=== PATIENT | male | born 1995 | race Caucasian/White ===

== ENCOUNTER 2017-04-03 16:09 | Emergency (ER) | payer BC ==
[2017-04-03 17:23] VITALS: BP 127/66
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
--- NOTE | 2017-04-03 19:46 | RAD ---
INDICATION: Left orbital trauma COMPARISON: None TECHNIQUE: Axial source images were acquired through the orbits orbits. Coronal and sagittal reconstructed images were acquired. FINDINGS: Orbits: The globes and intraconal structures appear intact. The optic nerves are symmetric. Extraocular muscles appear normal. There is no intraconal inflammatory change or retrobulbar mass.. Paranasal sinuses: There is mild mucosal thickening in the inferior portions of both maxillary antra The paranasal sinuses are otherwise clear. There is mild nasal septal deviation to the right Brain: There are no acute abnormalities of the visualized brain parenchyma. Soft tissues: Normal Other: None IMPRESSION: NEGATIVE NONCONTRAST CT OF THE ORBITS
== END 2017-04-03 19:56 | disposition home or self-care (01) ==
LOC: UCCORT 16:09
DX: S00.83XA Contusion of other part of head, initial encounter (principal); W50.0XXA Accidental hit or strike by another person, initial encounter; Y93.9 Activity, unspecified; Y92.9 Unspecified place or not applicable; G43.909 Migraine, unspecified, not intractable, without status migrainosus
CPT/HCPCS: 70480; 99201; G0463

== ENCOUNTER 2018-02-26 17:37 | Emergency (ER) | payer BC, OTHER ==
[2018-02-26 18:17] VITALS: BP 133/78
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
== END 2018-02-26 18:59 | disposition home or self-care (01) ==
LOC: UCCORT 17:37
DX: S00.81XA Abrasion of other part of head, initial encounter (principal); Y04.0XXA Assault by unarmed brawl or fight, initial encounter; Y92.9 Unspecified place or not applicable
CPT/HCPCS: 99211; G0463

== ENCOUNTER 2018-04-09 16:40 | Emergency (ER) | payer OTHER ==
[2018-04-09 17:27] VITALS: BP 137/73
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
[2018-04-09] MEDS ORDERED: Amoxicillin PO (*) 500 MG CAP PO ONE (18:15)
== END 2018-04-09 18:21 | disposition home or self-care (01) ==
LOC: UCCORT 16:40
DX: J02.0 Streptococcal pharyngitis (principal); M54.2 Cervicalgia
CPT/HCPCS: 87651; 99212; A9270-GY; G0463